=== PATIENT | female | born 1995 | race Caucasian/White ===

== ENCOUNTER 2018-04-01 23:27 | Emergency (ER) | payer MEDICAID ==
[~2018-04-01] VITALS: Ht 157.5 cm; Wt 77.1 kg
[~2018-04-01 23:27] MED LIST: LORA10TA19 PO
--- NOTE | 2018-04-01 23:45 | NUR ---
Amb to Bed 1 per self.
[2018-04-01 23:46] VITALS: BP 112/70
--- NOTE | 2018-04-01 23:55 | NUR ---
PT TO ED C/O RASH TO [facility] X 2 DAYS. NO S/S OF RESPIRATORY DISTRESS NOTED. PT ABLE TO SPEAK IN CLEAR FULL SENTECES. PT DENIES NEW FOOD OR SOAP. PT PLACED INTO BED, PENDING MD GUY. Addendum: 04/02/18 at 0103 by [email or web address] TO FACE*
[2018-04-02] MEDS ORDERED: predniSONE 20 MG TAB PO ONE (00:10)
--- NOTE | 2018-04-02 00:55 | NUR ---
X-Ray at bedside.
--- NOTE | 2018-04-02 01:05 | NUR ---
Patient discharged with v/s stable. Written and verbal after care instructions given and explained. Patient alert, oriented and verbalized understanding of instructions. Ambulatory with steady gait. All questions addressed prior to discharge. ID band removed. Patient advised to follow up with PMD. Rx of Claritin, and Predinisone given. Patient educated on indication of medication including possible reaction and side effects. Opportunity to ask questions provided and answered.
[2018-04-02 01:11] VITALS: BP 145/78
== END 2018-04-02 01:05 | disposition home or self-care (01) ==
LOC: MED 23:27
DX: J06.9 Acute upper respiratory infection, unspecified (principal); R21 Rash and other nonspecific skin eruption; F17.210 Nicotine dependence, cigarettes, uncomplicated; Z79.899 Other long term (current) drug therapy
CPT/HCPCS: 71045; 99283; J7512; Q0092

== ENCOUNTER 2019-09-17 15:29 | Emergency (ER) | payer MEDICAID ==
[~2019-09-17] VITALS: Ht 157.5 cm; Wt 90.7 kg
[2019-09-17 15:38] VITALS: BP 125/67
--- NOTE | 2019-09-17 15:48 | NUR ---
PATIENT AMBULATED TO BED 4.
--- NOTE | 2019-09-17 15:58 | NUR ---
C/O INTERMITTENT PALPITATIONS LASTING MINS--UNPROVOKED, SUBSTERNAL NON RADIATING SHARP PAIN X 2-3 MONTHS----PT HAD TESTED COVID POSITIVE IN JULY AND HAD A NEGATIVE RESULT RECENTLY. ASYMPTOMATIC AT THIS TIME
--- NOTE | 2019-09-17 15:59 | NUR ---
CXR AT BEDSIDE
[2019-09-17 16:18] LABS: BASOPHILS % (AUTO) 0.5 % (0.0-2.0); EOSINOPHILS # (AUTO) 0.1 K/uL (0-0.4); EOSINOPHILS % (AUTO) 0.8 % (0.0-4.0); HEMATOCRIT 38.3 % (36-48); HEMOGLOBIN 12.8 g/dL (12.0-16.0); LYMPHOCYTES # (AUTO) 1.5 K/uL (2.5-16.5); LYMPHOCYTES % (AUTO) 16.8 % (20.5-51.1); MEAN CORPUSCULAR HEMOGLOBIN 29 pg (27-31); MEAN CORPUSCULAR HGB CONC 33 g/dL (33-37); MEAN CORPUSCULAR VOLUME 86.9 fL (80-94); MONOCYTES # (AUTO) 0.5 K/uL (0.8-1.0); MONOCYTES % (AUTO) 6.3 % (1.7-9.3); NEUTROPHILS # (AUTO) 6.6 K/uL (1.8-7.7); NEUTROPHILS % (AUTO) 75.6 % (42.2-75.2); PLATELET COUNT (AUTO) 349 K/uL (140-450); RED BLOOD CELL COUNT(AUTO) 4.41 MIL/uL (4.20-5.40); RED CELL DISTRIBUTION WIDTH 13.8 % (11.6-13.7); WHITE BLOOD COUNT (AUTO) 8.8 K/uL (4.8-10.8)
[2019-09-17 16:42] LABS: ALBUMIN 3.8 g/dL (3.4-5.0); ANION GAP 14.7 (8-16); CARBON DIOXIDE 26.4 mmol/L (21-32); CREATININE 0.8 mg/dL (0.6-1.3); FREE T4 (FREE THYROXINE) 0.99 ng/dL (0.76-1.46); POTASSIUM 4.1 mmol/L (3.5-5.1); THYROID STIMULATING HORMONE 1.82 uIU/mL (0.34-3.74); TOTAL BILIRUBIN 0.3 mg/dL (0.0-1.0)
[2019-09-17 17:06] VITALS: BP 125/67
== END 2019-09-17 17:10 | disposition home or self-care (01) ==
LOC: MED 15:29
DX: R07.89 Other chest pain (principal); J45.909 Unspecified asthma, uncomplicated; Z79.899 Other long term (current) drug therapy
CPT/HCPCS: 36415; 71045; 80053; 81002; 81025; 84439; 84443; 84484; 85025; 93005; 99285

== ENCOUNTER 2023-06-09 23:15 | Emergency (ER) | payer MEDICAID, OTHER ==
[~2023-06-09] VITALS: Ht 157.5 cm; Wt 99.8 kg
[2023-06-09 23:20] VITALS: BP 98/62; PULSE 101; RESP 19; TEMP 98.7; O2SAT 97
[2023-06-10 02:18] LABS: BASOPHILS # (AUTO) 0.1 K/uL (0.00-0.22); BASOPHILS % (AUTO) 0.5 % (0.0-2.0); EOSINOPHILS # (AUTO) 0.1 K/uL (0-0.4); EOSINOPHILS % (AUTO) 0.5 % (0.0-4.0); HEMATOCRIT 37.6 % (36-48); HEMOGLOBIN 12.5 g/dL (12.0-16.0); LYMPHOCYTES # (AUTO) 3.4 K/uL (2.5-16.5); LYMPHOCYTES % (AUTO) 17.2 % (20.5-51.1); MEAN CORPUSCULAR HEMOGLOBIN 28 pg (27-31); MEAN CORPUSCULAR HGB CONC 33 g/dL (33-37); MEAN CORPUSCULAR VOLUME 85.1 fL (80-94); MONOCYTES # (AUTO) 1.2 K/uL (0.8-1.0); MONOCYTES % (AUTO) 6.3 % (1.7-9.3); NEUTROPHILS # (AUTO) 14.9 K/uL (1.8-7.7); NEUTROPHILS % (AUTO) 75.5 % (42.2-75.2); PLATELET COUNT (AUTO) 288 K/uL (140-450); RED BLOOD CELL COUNT(AUTO) 4.42 MIL/uL (4.20-5.40); RED CELL DISTRIBUTION WIDTH 14.5 % (11.6-13.7); WHITE BLOOD COUNT (AUTO) 19.7 K/uL (4.8-10.8)
[2023-06-10] MEDS: KETOROLAC 30 MG/ML VIAL IM ONE (02:47)
[2023-06-10 02:50] LABS: ALBUMIN 3.5 g/dL (3.4-5.0); ANION GAP 11.5 (8-16); CALCIUM 8.8 mg/dL (8.5-10.1); CARBON DIOXIDE 27.2 mmol/L (21-32); CREATININE 0.7 mg/dL (0.6-1.3); POTASSIUM 3.7 mmol/L (3.5-5.1); TOTAL BILIRUBIN 0.4 mg/dL (0.0-1.0); TOTAL PROTEIN, SERUM 7.9 g/dL (6.4-8.2)
[2023-06-10 02:55] LABS: APPEARANCE,URINE CLOUDY (CLEAR); BILIRUBIN,URINE NEGATIVE (NEGATIVE); BLOOD, URINE NEGATIVE (NEGATIVE); COLOR,URINE YELLOW (YELLOW); LEUKOCYTE ESTERASE ,URINE NEGATIVE (NEGATIVE); NITRITE, URINE NEGATIVE (NEGATIVE); PROTEIN,URINE 1+ (NEGATIVE); UGLUCOSE NEGATIVE (NEGATIVE)
[2023-06-10 03:12] LABS: BACTERIA,URINE OCCASSIONAL /HPF (None Seen); RBC,URINE NONE SEEN /HPF (0-5); URINE AMORPHOUS URATE 2+ /HPF (None Seen); WBC,URINE 0-5 /HPF (0-5)
[2023-06-10] MEDS: NACL 0.9% 1,000 ML IV ONE (03:47)
[2023-06-10 03:48] VITALS: BP 117/58; PULSE 55; RESP 16; O2SAT 98
[2023-06-10 04:12] LABS: LACTIC ACID 0.6 mmol/L (0.4-2.0)
[2023-06-10 04:13] LABS: FLU A ANTIGEN negative (NEGATIVE); FLU B ANTIGEN NEGATIVE (NEGATIVE)
== END 2023-06-10 04:45 | disposition home or self-care (01) ==
LOC: MED 23:15
DX: R50.9 Fever, unspecified (principal); Z20.822 Contact with and (suspected) exposure to COVID-19; D72.829 Elevated white blood cell count, unspecified; Z79.899 Other long term (current) drug therapy
CPT/HCPCS: 36415; 71045; 74176; 80053; 81001; 81025; 82550; 83605; 83690; 85025; 87426; 87804; 96360; 96372; 99285; J1885; Q0092; J7030

== ENCOUNTER 2023-09-19 12:00 | Emergency (ER) | payer OTHER ==
[~2023-09-19] VITALS: Ht 157.5 cm; Wt 106.8 kg
[2023-09-19 12:05] VITALS: BP 115/76; PULSE 77; RESP 16; TEMP 97; O2SAT 98
[2023-09-19] MEDS ORDERED: IBUP-2218 PO (12:32)
== END 2023-09-19 12:57 | disposition home or self-care (01) ==
LOC: MED 12:00
DX: M25.571 Pain in right ankle and joints of right foot (principal); J45.909 Unspecified asthma, uncomplicated; Z79.899 Other long term (current) drug therapy
CPT/HCPCS: 99282

== ENCOUNTER 2023-10-02 15:54 | Emergency (ER) | payer OTHER ==
[~2023-10-02] VITALS: Ht 157.5 cm; Wt 108.5 kg
[~2023-10-02 15:54] MED LIST changes: +IBUP-2218 PO
[2023-10-02 16:19] VITALS: BP 136/82; PULSE 90; RESP 20; TEMP 97.9; O2SAT 99
[2023-10-02 17:08] VITALS: BP 136/82; PULSE 90; RESP 20; TEMP 97.9; O2SAT 99
== END 2023-10-02 17:09 | disposition home or self-care (01) ==
LOC: MED 15:54
DX: Z00.01 Encounter for general adult medical examination with abnormal findings (principal); J45.909 Unspecified asthma, uncomplicated; Z79.899 Other long term (current) drug therapy
CPT/HCPCS: 81025; 99282

== ENCOUNTER 2023-10-04 08:19 | Emergency (ER) | payer OTHER ==
[~2023-10-04] VITALS: Ht 157.5 cm; Wt 107.6 kg
[2023-10-04 08:34] VITALS: BP 117/64; PULSE 93; RESP 18; TEMP 98.1; O2SAT 98
== END 2023-10-04 08:53 | disposition home or self-care (01) ==
LOC: MED 08:19
DX: J06.9 Acute upper respiratory infection, unspecified (principal); J45.909 Unspecified asthma, uncomplicated; Z79.1 Long term (current) use of non-steroidal anti-inflammatories (NSAID); Z79.899 Other long term (current) drug therapy
CPT/HCPCS: 99281

== ENCOUNTER 2023-10-25 08:53 | Emergency (ER) | payer OTHER ==
[~2023-10-25] VITALS: Ht 157.5 cm; Wt 107.1 kg
[2023-10-25 09:06] VITALS: BP 119/69; PULSE 73; RESP 18; TEMP 97.4; O2SAT 98
[2023-10-25] MEDS: IBUPROFEN 600 MG TAB PO ONE (09:24)
[2023-10-25 10:03] VITALS: BP 114/64; PULSE 71; RESP 18; TEMP 97.4; O2SAT 98
== END 2023-10-25 10:03 | disposition home or self-care (01) ==
LOC: MED 08:53
DX: S63.602A Unspecified sprain of left thumb, initial encounter (principal); J45.909 Unspecified asthma, uncomplicated; Z79.899 Other long term (current) drug therapy; X58.XXXA Exposure to other specified factors, initial encounter; Y93.89 Activity, other specified; Y92.89 Other specified places as the place of occurrence of the external cause; Y99.8 Other external cause status
CPT/HCPCS: 73140; 81025; 99283